=== PATIENT | female | born 1995 | race Hispanic/Latino ===

== ENCOUNTER 2025-04-02 22:15 | Emergency (ER) | payer SELFPAY ==
--- NOTE | ~2025-04-02 | XR_ITS ---
Examination: XR chest 1V portable Clinical History: cough Comparison: None Technique: Portable AP Findings: Heart size normal. Lungs clear. No acute bony abnormality. IMPRESSION: 1. No acute cardiopulmonary findings given portable technique. Reviewed, dictated and finalized at location R.
--- NOTE | ~2025-04-02 | CT_ITS ---
EXAMINATION:CT diagnostic chest w con DATE: 04/03/2025 08:04 INDICATION: Cough. Chest pain. TECHNIQUE: Computed tomography (CT) of the chest was performed with 75 mL Omnipaque 350 intravenous contrast. Automated exposure control and iterative reconstruction technique were employed. The dose-length product (DLP) was 125.72 mGy-cm. COMPARISON: None. FINDINGS: The lungs demonstrate mild atelectasis. No pleural effusion. The heart size is normal. No pericardial effusion. There is no pulmonary embolus. The bones are unremarkable. IMPRESSION: 1. No etiology for the patient's symptoms. Reviewed, dictated and finalized at location E.
[2025-04-02 22:20] VITALS: BP 110/63; PULSE 93; RESP 20; TEMP 36.8; O2SAT 98
[2025-04-03 03:03] LABS: Alanine Aminotransferase 22 U/L (6-35); Albumin Level 4.4 g/dL (3.5-5.1); Alkaline Phosphatase 104 U/L (38-126); Anion Gap 11 mmol/L (4-12); Aspartate Amino Transferase 31 U/L (14-36); Bilirubin,Total 1.1 mg/dL (0.2-1.3); Blood Urea Nitrogen 11 mg/dL (7-17); Calcium 9.1 mg/dL (8.4-10.2); Carbon Dioxide 24 mmol/L (22-30); Chloride 102 mmol/L (98-107); Estimated CRCL calculation 64 ml/min; Estimated Glomerular Filt Rate > 60; Glucose 118 mg/dL (65-110); Lipase 59 U/L (23-300); Potassium 3.7 mmol/L (3.4-5.0); Sodium 137 mmol/L (137-145); Total Protein 8.3 g/dL (6.3-8.2)
[2025-04-03 03:06] LABS: Hematocrit 40.2 % (37.0-47.0); Hemoglobin 12.6 g/dL (12.0-15.0); Mean Corpuscular HGB Conc 31.3 g/dl (32-36); Mean Corpuscular Hemoglobin 26.4 pg (26-34); Mean Corpuscular Volume 84.3 fl (80-100); Platelet Count Result 352 k/mm3 (150-375); Red Blood Count 4.77 M/mm3 (4.2-5.4); White Blood Count 17.4 K/mm3 (4.5-10.0)
[2025-04-03 03:42] LABS: Band Neutrophils Percent 5 % (0-6); Eosinophils Absolute Manual 0.17 K/mm3 (0.02-0.50); Eosinophils Percent Manual 1 % (0-4); Lymphocytes Absolute Manual 0.17 K/mm3 (1.1-4.5); Lymphocytes Percent Manual 1.0 % (18-44); Monocytes Absolute Manual 1.39 K/mm3 (0.1-0.90); Monocytes Percent Manual 8 % (3-9); Neutrophils Absolute Manual 15.66 K/mm3 (1.3-6.7); Neutrophils Percent Manual 85 % (46-73); Total Cells Counted 100
[2025-04-03 03:43] LABS: Schistocytes None Seen
[2025-04-03 03:55] VITALS: BP 123/71; PULSE 69; RESP 16; O2SAT 99
[2025-04-03 04:46] LABS: BEDSIDEPREGUCG Negative (Negative)
[2025-04-03 05:24] LABS: Add Urine Microscopic? YES; Appearance Urine Clear (Clear); Glucose Urine UA Negative (Negative); Leukocyte Esterase Ur 1+ LEU/UL (Negative); Need Manual Microscopic Reviewed; Nitrate Urine Negative (Negative); Non Pathogenic Casts 0-2; Specific Grav Ur 1.023 (1.001-1.035)
[2025-04-03 05:42] LABS: Influenza A QL RT-PCR Negative (Negative); Influenza B QL RT-PCR Negative (Negative); RSV RNA, RT-PCR Negative (Negative); SARS-CoV-2 RNA PCR Negative (Negative)
[2025-04-03 06:38] VITALS: BP 116/62; PULSE 88; RESP 20; O2SAT 100
[2025-04-03 07:04] VITALS: BP 108/82; PULSE 89; RESP 18; O2SAT 100
--- NOTE | 2025-04-03 07:38 | ED.NAVMDI ---
HPI - Nausea/Vomiting/Diarrhea General Chief complaint: Nausea/Vomiting/Diarrhea Stated complaint: n/v, cp Time Seen by Provider: 04/03/25 04:15 Source: patient Mode of arrival: EMS Limitations: no limitations History of Present Illness HPI Narrative: Patient presents with report of multiple symptoms. She has had a cough for the past 2 months which has alternated between being dry or having some mucus in her throat. She has been seen at urgent care twice for this and diagnosed with allergies although the patient does not believe this diagnosis. She has also seen a specialist and diagnosed with allergies. More recently, she has been having nausea and vomiting. She had 3 episodes of emesis although denies any blood. It was pink tinged given the fact that she had is seen [facility]. She had just eaten food at her friends and her grandma thought this might be acid reflux. She took a heartburn pill which did not help. She then developed chest pain and tightness. She does not smoke. She reports that she was just informed by her [id number] that there had been black mold found under the trailer where they reside, linoleum covers the floor. She had rhinorrhea approximately 1 week ago although this is better. She is complaining of body aches. EMS gave aspirin and this seemed to help. She notes that she had been very cold and shivering. Patient had been on steroids prescribed by urgent care last month but none more recently. Denies any abdominal or flank pain. Her last menstrual period was recent, it stopped 3 days ago. Her last bowel movement was yesterday. She denies any dysuria or hematuria. She chronically has urinary frequency and attributes this to be small with a tiny bladder. She denies diarrhea. Related Data Allergies Allergy/AdvReac Type Severity Reaction Status Date / Time No Known Allergies Allergy Verified 04/02/25 22:16 [facility] Past Medical History Medical History Allergies Social History Social History Social History: Living arrangements: with family Additional living arrangements comments: Exam Narrative: GENERAL: Well-appearing, well-nourished, and in no acute distress. HEAD: Normocephalic, atraumatic. EYES: Non injected, non icteric ENT: Nares clear, no rhinorrhea or epistaxis. Gross auditory acuity intact. NECK: Supple. No meningismus. CHEST: Speaking in full sentences. No respiratory distress. HEART: Regular rate and rhythm. . ABDOMEN: Soft, nondistended. No rigidity or guarding. Not peritoneal EXTREMITIES: Normal range of motion. No lower extremity edema. SKIN: Warm, dry, no rash. NEURO: No focal deficits. Alert and oriented. Answering questions. Following commands. Normal speech without aphasia or dysarthria. PSYCH: Normal mood and affect. Course Vital Signs Vital signs: Vital Signs Temperature 98.3 F 04/02/25 22:20 Pulse Rate 93 04/02/25 22:20 Respiratory Rate 20 04/02/25 22:20 Blood Pressure 110/63 04/02/25 22:20 Pulse Oximetry 98 04/02/25 22:20 Oxygen Delivery Room Air 04/02/25 22:20 Temperature 98.4 F 04/03/25 10:27 Pulse Rate 77 04/03/25 10:27 Respiratory Rate 14 04/03/25 10:27 Blood Pressure 114/79 04/03/25 10:27 Pulse Oximetry 100 04/03/25 10:27 Oxygen Delivery Room Air 04/02/25 22:20 MDM - Nausea/Vomiting/Diarrhea MDM Narrative Medical decision making narrative: Patient presents with multiple symptoms and concerns. She has had a cough for the past 2 months. More acutely, she has had nausea and 3 episodes of nonbloody vomiting. This was associated with chest pain and tightness. She has also been having body aches and felt very cold, shivering. In the emergency department they are afebrile with vital signs within normal limits. test negative. Urinalysis without bacteriuria although there are abnormalities; however, she denies any dysuria or hematuria. She does note chronic urinary frequency however states no acute changes; attributes it to her being tiny and having a small bladder. However, she denies any significant symptoms and thus will defer treating at this time with antibiotics. Urine culture is in process however. She has a leukocytosis with white count greater than 17. Had been on steroids but that was approximately 1 month ago. Chemistry with normal renal function no marked electrolyte abnormalities. Viral swab negative. Chest x-ray unremarkable. CPK mildly elevated but not to a degree to suggest rhabdomyolysis. Thyroid normal. Troponin normal. Zofran given for N/V and toradol and acetaminophen for other symptoms. CT also negative. At this time, no emergent etiology has been identified her patient's symptoms. She has remained hemodynamically stable with vital signs within normal limits. Advised follow-up with a primary care physician. Provided referral contact information for 1. Prescribed Zofran and Tessalon Perles. Differential Diagnosis Differential diagnosis: Likely food poisoning, gastroenteritis, drug-induced nausea and vomiting, dehydration and other ( ; acute viral syndrome; ACS) Lab Data Attestation: I reviewed the patient's lab results. 04/03/25 02:44 04/03/25 02:44 Labs: Lab Results 04/03/25 04/03/25 04/03/25 Range/Units 02:44 04:39 04:40 WBC 17.4 H (4.5-10.0) K/mm3 RBC 4.77 (4.2-5.4) M/mm3 Hgb 12.6 (12.0-15.0) g/dL Hct 40.2 (37.0-47.0) % MCV 84.3 (80-100) fl MCH 26.4 (26-34) pg MCHC 31.3 L (32-36) g/dl RDW 13.1 (11.5-14.5) % Plt Count 352 (150-375) k/mm3 MPV 10.3 (7.4-10.4) fl Immature Gran % (Auto) Not Reportable Neut % (Auto) Not Reportable Lymph % (Auto) Not Reportable [place] % (Auto) Not Reportable Eos % (Auto) Not Reportable Baso % (Auto) Not Reportable Lymph # (Auto) Not Reportable [place] # (Auto) Not Reportable Eos # (Auto) Not Reportable Baso # (Auto) Not Reportable Abs Immat Gran (auto) Not Reportable Absolute Neuts (auto) Not Reportable Absolute Nucleated RBC Not Reportable Total Counted 100 Neutrophils % (Manual) 85 H (46-73) % Band Neutrophils % 5 (0-6) % Lymphocytes % (Manual) 1.0 L (18-44) % Monocytes % (Manual) 8 (3-9) % Eosinophils % (Manual) 1 (0-4) % Nucleated RBC % Not Reportable Abs Neuts (Manual) 15.66 H (1.3-6.7) K/mm3 Abs Lymphs (Manual) 0.17 L (1.1-4.5) K/mm3 Abs Monocytes (Manual) 1.39 H (0.1-0.90) K/mm3 Absolute Eos (Manual) 0.17 (0.02-0.50) K/mm3 Platelet Estimate Adequate (Adequate) Clumped Platelets Present Schistocytes None seen Sodium 137 (137-145) mmol/L Potassium 3.7 (3.4-5.0) mmol/L Chloride 102 (98-107) mmol/L Carbon Dioxide 24 (22-30) mmol/L Anion Gap 11 (4-12) mmol/L BUN 11 (7-17) mg/dL Creatinine 0.82 (0.7-1.0) mg/dL Estim Creat Clear Calc 64 ml/min Estimated GFR > 60 (59 - ) Glucose 118 H (65-110) mg/dL Calcium 9.1 (8.4-10.2) mg/dL Total Bilirubin 1.1 (0.2-1.3) mg/dL AST 31 (14-36) U/L ALT 22 (6-35) U/L Alkaline Phosphatase 104 (38-126) U/L Total Creatine Kinase 198 H (30-135) U/L Troponin I < 0.012 (0.000-0.034) ng/mL Total Protein 8.3 H (6.3-8.2) g/dL Albumin 4.4 (3.5-5.1) g/dL Lipase 59 (23-300) U/L TSH 0.482 (0.465-4.680) uIU/mL Urine Color Yellow (Yellow) Urine Appearance Clear (Clear) Urine pH 8.5 (5.0-9.0) Ur Specific [place] 1.023 (1.001-1.035) Urine Protein 1+ H (Negative) mg/dL Urine Glucose (UA) Negative (Negative) mg/dL Urine Ketones 2+ H (Negative) mg/dL Ur Blood (Man) Negative (Negative) Urine Nitrate Negative (Negative) Urine Bilirubin Negative (Negative) Urine Urobilinogen 1.0 (<2.0) mg/dL Add Ur Microanalysis Reviewed Leukocyte Esterase Rfl 1+ H (Negative) SAFIA/UL Urine RBC 11-20 H (0-2) /hpf Urine WBC 11-20 H (0-3) /hpf Ur Squamous Epith Cells None seen (Few) /hpf Urine Bacteria None seen /hpf Urine Casts 0-2 POC Urine HCG, Qual (Negative) Influenza A (RT-PCR) Negative (Negative) Influenza B (RT-PCR) Negative (Negative) RSV (RT-PCR) Negative (Negative) SARS-CoV-2 RNA (RT-PCR) Negative (Negative) 04/03/25 Range/Units 04:44 WBC (4.5-10.0) K/mm3 RBC (4.2-5.4) M/mm3 Hgb (12.0-15.0) g/dL Hct (37.0-47.0) % MCV (80-100) fl MCH (26-34) pg MCHC (32-36) g/dl RDW (11.5-14.5) % Plt Count (150-375) k/mm3 MPV (7.4-10.4) fl Immature Gran % (Auto) Neut % (Auto) Lymph % (Auto) [place] % (Auto) Eos % (Auto) Baso % (Auto) Lymph # (Auto) [place] # (Auto) Eos # (Auto) Baso # (Auto) Abs Immat Gran (auto) Absolute Neuts (auto) Absolute Nucleated RBC Total Counted Neutrophils % (Manual) (46-73) % Band Neutrophils % (0-6) % Lymphocytes % (Manual) (18-44) % Monocytes % (Manual) (3-9) % Eosinophils % (Manual) (0-4) % Nucleated RBC % Abs Neuts (Manual) (1.3-6.7) K/mm3 Abs Lymphs (Manual) (1.1-4.5) K/mm3 Abs Monocytes (Manual) (0.1-0.90) K/mm3 Absolute Eos (Manual) (0.02-0.50) K/mm3 Platelet Estimate (Adequate) Clumped Platelets Schistocytes Sodium (137-145) mmol/L Potassium (3.4-5.0) mmol/L Chloride (98-107) mmol/L Carbon Dioxide (22-30) mmol/L Anion Gap (4-12) mmol/L BUN (7-17) mg/dL Creatinine (0.7-1.0) mg/dL Estim Creat Clear Calc ml/min Estimated GFR (59 - ) Glucose (65-110) mg/dL Calcium (8.4-10.2) mg/dL Total Bilirubin (0.2-1.3) mg/dL AST (14-36) U/L ALT (6-35) U/L Alkaline Phosphatase (38-126) U/L Total Creatine Kinase (30-135) U/L Troponin I (0.000-0.034) ng/mL Total Protein (6.3-8.2) g/dL Albumin (3.5-5.1) g/dL Lipase (23-300) U/L TSH (0.465-4.680) uIU/mL Urine Color (Yellow) Urine Appearance (Clear) Urine pH (5.0-9.0) Ur Specific [place] (1.001-1.035) Urine Protein (Negative) mg/dL Urine Glucose (UA) (Negative) mg/dL Urine Ketones (Negative) mg/dL Ur Blood (Man) (Negative) Urine Nitrate (Negative) Urine Bilirubin (Negative) Urine Urobilinogen (<2.0) mg/dL Add Ur Microanalysis Leukocyte Esterase Rfl (Negative) SAFIA/UL Urine RBC (0-2) /hpf Urine WBC (0-3) /hpf Ur Squamous Epith Cells (Few) /hpf Urine Bacteria /hpf Urine Casts POC Urine HCG, Qual Negative (Negative) Influenza A (RT-PCR) (Negative) Influenza B (RT-PCR) (Negative) RSV (RT-PCR) (Negative) SARS-CoV-2 RNA (RT-PCR) (Negative) Imaging Data Radiologist's impression: Impressions Chest X-Ray 04/03/25 06:04 IMPRESSION: 1. No acute cardiopulmonary findings given portable technique. Chest CT 04/03/25 08:05 IMPRESSION: 1. No etiology for the patient's symptoms. ECG Data EKG #1: Attestation: I personally reviewed and interpreted this ECG as follows: ECG completion date: 04/03/25 ECG completion time: 08:10 Prior ECG tracings: not available for review (No prior for comparison) Interpretation: Normal sinus rhythm at a rate of 89 beats per minute. LA interval 144. QRS 92. QT/QTC 348/425. Good R-wave progression across the precordial leads. Patient does appear to have potential intraventricular conduction delay given the RSR prime appearance in in V1 V2 and V3. Not a complete bundle-branch block given QRS is less than 120 milliseconds. There is some slight widening slurring of 1 aVL and other lateral precordial leads V5 V6. Discharge Plan Discharge Clinical Impression: Nausea & vomiting, Abnormal urinalysis, Leukocytosis, Bronchitis, Chest pain Patient Disposition: Home Condition: Stable Instructions: Antibiotic Form, Chest Pain (DC), Acute Bronchitis (ED), Acute Nausea and Vomiting (DC), Leukocytosis (ED) Additional Instructions: Your extensive workup did not reveal an emergent cause of your symptoms. You do not have a pneumonia on your chest x-ray or your CT scan. The cough with a negative imaging represents bronchitis. No role for antibiotics or steroids. This is typically viral although you tested negative for COVID, influenza a, influenza B, and RSV. You had a reassuring EKG as well as a cardiac enzymes/troponin. Recommend following up with primary care physician. If you do not have 1 the name of the doctors listed below. Rest and maintain your hydration. Return to the emergency department any new or worsening symptoms. You can use the Tessalon Perles for the cough. Keep them out of reach of children. You can use the oral disintegrating tablets of Zofran for nausea and vomiting. Patient Language: Kyrgyz Prescriptions: New ondansetron 4 mg tablet,disintegrating 4 mg PO Q8H PRN (Reason: nausea and vomiting) Qty: 7 0RF benzonatate 100 mg capsule 100 mg PO BID PRN (Reason: cough) Qty: 20 0RF Follow-up/Referrals: Steffen Larsen MD [Physician, Family Practice] UNKNOWN,DOCTOR [Primary Care Provider] Stand Alone Forms: Work/School Release IP Time of Disposition: 10:07
--- NOTE | 2025-04-03 07:48 | ECG_ITS ---
Test Date: 2025-04-03 08:10:25 Measurements Intervals [place] Rate: 89 P: 48 SC: 144 QRS: 1 QRSD: 92 T: 22 QT: 348 QTc: 425 Interpretive Statements SINUS RHYTHM RSR' IN V1 OR V2, CONSIDER RIGHT VENTRICULAR CONDUCTION DELAY BASELINE ARTIFACT- I, II, III, AVR, AVL, AVF BORDERLINE ECG No previous ECG available for comparison Electronically Signed On 04-03-2025 08:22:55 CDT by Mack Piña D.O.
[2025-04-03 07:49] LABS: Creatine Kinase 198 U/L (30-135)
[2025-04-03 08:38] LABS: Thyroid Stimulating Hormone 0.482 uIU/mL (0.465-4.680)
--- NOTE | 2025-04-03 09:25 | PC.NURSE ---
pt up to use the bathroom. gait steady
[2025-04-03] MEDS: ONDANSETRON INJ 4 MG/2 ML VIAL IV PUSH (09:26)
[2025-04-03 09:39] LABS: Troponin I < 0.012 ng/mL (0.000-0.034)
[2025-04-03 09:45] VITALS: PULSE 63; RESP 15; O2SAT 99
[2025-04-03 10:00] VITALS: BP 112/80; PULSE 78; RESP 15; O2SAT 100
[2025-04-03] MEDS: KETOROLAC 30 MG/ML VIAL (*BKC) 15 MG IM (10:15)
[2025-04-03] MEDS: ACETAMINOPHEN 325 MG TABLET 650 MG PO (10:19)
[2025-04-03] MEDS: BENZONATATE 100 MG CAPSULE PO (10:20)
[2025-04-03 10:27] VITALS: BP 114/79; PULSE 77; RESP 14; TEMP 36.9; O2SAT 100
== END 2025-04-03 10:28 | disposition home or self-care (01) ==
PROVIDERS: Emergency Medicine; Emergency Provider Student in an Organized Health Care Education/Training Program
DX: R11.2 Nausea with vomiting, unspecified (principal); R82.998 Other abnormal findings in urine; D72.829 Elevated white blood cell count, unspecified; J40 Bronchitis, not specified as acute or chronic; R07.9 Chest pain, unspecified
CPT/HCPCS: 36415; 71045; 71260; 80053; 81001; 81025; 82550; 83690; 84443; 84484; 85025; 87086; 87637; 93005; 96372; 96374; 99284; A9270; J1885; J2405; Q9967